=== PATIENT | male | born 2005 | race African-American/Black ===

== ENCOUNTER 2023-03-29 17:58 | Emergency (ER) | payer BC, OTHER ==
[2023-03-29 18:03] VITALS: BP 131/75; PULSE 124; RESP 18; TEMP 98; BMI 19.3
[2023-03-29] MEDS ORDERED: SODIUM CHLORIDE 0.9% 500 ML INFUS.BAG IV ONE (18:43)
[2023-03-29 19:09] LABS: BASO % 0.9 % (0-2.0); EOS % 2.7 % (0-4.5); HEMATOCRIT 46.3 % (35.4-49); LYMPH % 31.4 % (8-40); MCH 30.6 pg (25.7-33.7); MCHC 34.5 g/dl (32.0-35.9); MEAN CELL VOLUME 88.8 fl (80-96); MEAN PLT VOLUME 8.4 fl (7.5-11.1); MONO % 12.8 % (3.8-10.2); NEUT % 52.2 % (42.8-82.8); PLATELET COUNT 191 10^3/uL (134-434); RBC 5.21 M/mm3 (4.00-5.60); RDW 13.1 % (11.9-15.9); WHITE BLOOD COUNT 4.7 K/mm3 (4.0-10.0)
[2023-03-29 19:10] LABS: PH,URINE 7.5 (5.0-8.0); URINE APPEARANCE Clear; URINE BILIRUBIN Negative (NEGATIVE); URINE COLOR Yellow; URINE GLUCOSE (UA) Negative (NEGATIVE); URINE KETONE Negative (NEGATIVE); URINE LEUK ESTERASE Negative (NEGATIVE); URINE NITRITE Negative (NEGATIVE); URINE PROTEIN Negative (NEGATIVE); URINE UROBILINOGEN 0.2 mg/dL (0.2-1.0)
[2023-03-29 19:11] LABS: VENOUS BASE EXCESS 3.2 mmol/L (-2-2); VENOUS O2 SATURATION 64.2 % (70-80); VENOUS PCO2 47.8 mmHg (38-52); VENOUS PH 7.401 (7.310-7.410)
[2023-03-29 19:39] LABS: POTASSIUM 3.6 mmol/L (3.5-5.1)
[2023-03-29 19:41] LABS: CALCIUM 8.9 mg/dL (8.5-10.1)
[2023-03-29 19:42] LABS: ALBUMIN 4.2 g/dl (3.4-5.0); BLOOD UREA NITROGEN 14.9 mg/dL (7-18)
[2023-03-29 19:45] LABS: CREATININE 1.3 mg/dL (0.55-1.3)
[2023-03-29 19:46] LABS: TOT PROT 8.2 g/dl (6.4-8.2)
== END 2023-03-29 21:23 | disposition home or self-care (01) ==
LOC: JER 17:58
DX: R42 Dizziness and giddiness (principal); R63.1 Polydipsia; R35.89 Other polyuria; E86.0 Dehydration; R35.0 Frequency of micturition
CPT/HCPCS: 36415; 80053; 81003; 82010; 82803; 84443; 84484; 85025; 87086; 93005; 93010; 99284-25